=== PATIENT | female | born 1995 | race Caucasian/White ===

== ENCOUNTER 2020-08-23 13:11 | Outpatient (REF) | payer BC, SELFPAY | END 2020-08-23 13:12 | disposition home or self-care (01) | LOC: HO.LAB 13:11 | PROVIDERS: PCP Family Medicine; Referring Provider Family Medicine; Visit Provider Advanced Practice Midwife | DX: Z13.89 Encounter for screening for other disorder (principal) ==

== ENCOUNTER 2020-08-30 08:05 | Outpatient (REF) | payer BC, SELFPAY ==
[2020-08-30 09:35] LABS: Hematocrit 39.9 % (37-47); Mean Corpuscular HGB Conc 32.6 g/dl (31.0-35.0); Mean Corpuscular Hemoglobin 30.6 pg (27.0-33.0); Mean Corpuscular Volume 93.9 fL (80-98); Mean Platelet Volume 10.3 fL (9.4-12.3); Platelet Count 225 X10*3/uL (160-400); Red Blood Count 4.25 X10*6/uL (4.20-5.50); Red Cell Distribution Width 12.2 % (11.0-16.0); White Blood Count 3.2 X10*3/uL (4.8-10.8)
[2020-08-30 10:31] LABS: Thyroid Stimulating Hormone 2.28 mIU/mL (0.32-4.0)
== END 2020-08-30 08:06 | disposition home or self-care (01) ==
LOC: HO.LAB 08:05
PROVIDERS: PCP Family Medicine; Visit Provider Advanced Practice Midwife
DX: N89.8 Other specified noninflammatory disorders of vagina (principal); N94.6 Dysmenorrhea, unspecified
CPT/HCPCS: 36415; 84443; 85027

== ENCOUNTER 2022-06-26 10:39 | Outpatient (REF) | payer BC, SELFPAY ==
[2022-06-29 21:16] LABS: HPV mRNA E6/E7 rflx Not Detected (Not Detected)
== END 2022-06-26 10:40 | disposition home or self-care (01) ==
LOC: HO.LAB 10:39
PROVIDERS: Visit Provider Advanced Practice Midwife
DX: Z01.419 Encounter for gynecological examination (general) (routine) without abnormal findings (principal); Z11.51 Encounter for screening for human papillomavirus (HPV)
CPT/HCPCS: 87624; 88142

== ENCOUNTER 2024-12-22 14:36 | Outpatient (AMB) | payer BC, SELFPAY ==
[2024-12-22 14:40] VITALS: BP 118/70; BMI 33.2
--- NOTE | 2024-12-22 14:40 | A.OFFVIS_ITS ---
Vital Signs 12/22/24 14:40 Height 5 ft 9 in Weight 225 lb BMI 33.2 BP 118/70 Intake Visit Reasons: aNNUAL Application Support Required: No Application Support Services: Application Support Present Information Interpreted: clinical only Director Social Welfare: Director Social Welfare Present Allergies amoxicillin Allergy (Unknown, Uncoded 12/22/24 14:42) Unknown wasp Allergy (Unknown, Uncoded 12/22/24 14:42) unkn Medication List - Last Reconciled 12/22/24 by Yaerlis Treadwell CNM multivitamin (Daily Multi-Vitamin tablet) 1 tab PO DAILY Is last menstrual period known: Yes Last menstrual period: 12/18/24 HPI HPI aNNUAL: Details: Patient is here for an annual exam visit. She says she had an abnormal Pap smear 10 years ago and the follow-up Pap smear was okay but she is concerned because she felt a bump on her cervix and she wants that checked she was wondering if it was a laceration from childbirth. She feels a bump on the left side. She is aware of symptoms of ovulation and uses fertility awareness as her method of control. She is exclusively nursing but after both children she resumed having menses about 7 weeks . Her baby is with her and is 5-month-old is very talkative and she has a 3-year-old who is with his grandmother. She says the infection that she had in her small intestines that was diagnosed with breast test few years ago was treated instead of antibiotics a special TPN type liquid diet for 2weeks that deprived the bacteria of nourishment and cured it. She had a home with this last delivery and says everything went very well and she had a 3-1/2 hour labor. [facility] Surgical History Hx of wisdom tooth extraction Family History Mother Diabetes mellitus HTN (hypertension) Maternal Grandmother Breast cancer Paternal Grandmother Lung cancer Breast cancer Social History Alcohol intake: current Alcohol intake frequency: a few times a month Gender identity: Female Female Reproductive History Menstrual Age of Menarche: 10 Date of last menstrual period: 12/18/24 control method: none Total pregnancies: 2 Full term: 2 Date of last pap smear: 06/28/22 (neg,) History of abnormal pap smear: Yes (10 yrs ago) Physical Exam Vital Signs: BMI result Body Mass Index 33.2 Const General: healthy appearing, comfortable, no acute distress, well developed and alert Nutritional Appearance: average body habitus Orientation/consciousness: patient oriented x3 Limitations: no limitations HEENT Head: Yes normocephalic Neck Neck: Yes normal visual inspection Chest Other: Mother is lactating, last nursed 5 month old baby about 1 hour ago, breasts slightly full, nipples well everted, healthy, no masses redness or other signs of mastitis or plugged milk ducts. Chest palpation & inspection: normal inspection of the chest Breast/axilla inspection: normal inspection of the breasts and normal inspection of the axillae Breast/axilla palpation: normal palpation of the breasts and normal palpation of the axillae Resp Effort & Inspection: normal respiratory effort GI Inspection: Yes normal to inspection, No Abdominal wall edema and No distended Palpation (GI): Soft to palpation and nontender Other: Normal external exam vagina deep pink consistent with nursing moist normal appearing mucus. Cervix is multiparous evidence of horizontal laceration consistent with normal childbirth, extremely well healed. Small nabothian cyst at 04:00 o'clock cervix long close thick mobile nontender uterus midposition mobile nontender adnexa nontender nonenlarged and very good tone w Kegel. General: Yes bladder normal to palpation External Female Exam: normal external appearance and normal appearance of the urethra Speculum Exam - Vagina: normal appearance of the vagina, normal palpation and normal vaginal discharge Speculum Exam - Cervix: normal appearance of the cervix, normal palpation and nontender Bimanual exam- vagina & uterus: normal bimanual exam, normal palpation, uterine size normal, bladder normal to palpation, consistency normal, normal palpation, uterine mobility normal, uterine shape normal, No Cervical tenderness present, non-tender and no cervical motion tenderness Bimanual Exam- Adnexa, other: normal adnexae, no masses, normal and No adnexal tenderness Neuro General: patient oriented x3 Results Reviewed Results Reviewed: tray: Melony Rogers Age/Sex: 27/F Attending: Yarelis Treadwell CNM : 1995 Submitted by: Yarelis Treadwell [facility] Copies to: MR #: [id number] Status: DEP REF Collected: 06/26/22 Location: .LAB Received: 06/28/22 Interpretation Satisfactory for evaluation. Coccobacilli consistent with shift in vaginal mabel. Negative for intraepithelial lesion or malignancy. HPV mRNA E6/E7: NOT DETECTED This assay detects E6/E7 viral messenger RNA (mRNA) from 14 high-risk HPV types (16, 18, 31, 33, 35, 39, 45, 51, 52, 56, 58, 59, 66, 68) HPV testing performed by [facility], [place], [place]. See reference la urmila pion of the EMR for entire report. Clinical Information LMP: 06/11/22 Previous PAP test: No pap hx Material Received ThinPrep-Cervical Electronically Signed By: ANNE MARIE Zamora (ASCP) 07/11/22 1315 The Pap Test is a screening procedure with the inherent possibility of both false negative and false positive results. Results should be interpreted in the context of historic and current clinical findings. Reliability of the Pap Test is enhanced by performing the test on a regular repetitive basis. Patient: Melony Rogers Age/Sex: 27/F MR#: [id number] Page 1 of 1 Assessment & Plan Assessment & Plan (1) Well woman exam with routine gynecological exam: Comment: 06/26/22-Patient stated she only wanted her Pap smear today and she did not want to talk about other issues. She declined breast exam and pelvic exam other than the speculum exam for the Pap smear. 12/22/24 visit-normal visit and exam see notes. Code(s): Z01.419 - Encounter for gynecological examination (general) (routine) without abnormal findings Category: Medical (2) Cervical cancer screening: Comment: No history of abnormals. Pap smear only done 06/26/2022 if normal, next Pap in 3 years. 06/26/2022 Pap is negative with negative HPV..//(12/22/2024 patient says today that she did have a history of abnormals 10 years ago. Pap smear done with HPV co testing 01/19/25. Code(s): Z12.4 - Encounter for screening for malignant neoplasm of cervix Category: Medical (3) Family planning: Comment: Using fertility awareness Code(s): Z30.09 - Encounter for other general counseling and advice on contraception Category: Social Hx Plan -----Discussed in this visit the following: healthy balanced diet, regular and consistent exercise, getting recommended health screens, doing the best she can for her particular health concerns, kegel exercises, pap smear screening and followup recommendations, mammography screening and SBE, normal changes in cycles in her life stage--- . She is very well aware cyclic changes and follows signs and symptoms of fertility and ovulation for family planning. When they are done with childbearing she is planning on partner/ vasectomy. She is nursing with no difficulty. She is feeling fine since bacteria in her small intestine was dealt with She had a very good home experience with her last baby She was concerned about a bump that she felt on her cervix which was a small nabothian cyst. Cervix is otherwise multiparous smooth pink consistent with lactating mother. I showed her her cervix and the nabothian cyst. Completely normal multiparous cervix. Discussed the while we say come back yearly for exams if she has no need she can make decisions about that so long as she has seen somebody for care which she was primary care provider Pap smear done today if this 1 is negative with negative HPV she may not need another Pap smear for 5 years she is getting her healthcare needs met with other providers. Timeframe/Date Comment RTC for annual or p.r.n Orders: Orders Pap Smear Today Z00.00 - Encounter for general adult medical examination without abnormal findings Coding Level of Care Code Est Pt Prev Care 18-39y([id number]) Diagnoses Well woman exam with routine gynecological exam Z01.419 Cervical cancer screening Z12.4 Family planning Z30.09
--- OUTSIDE RECORDS SUMMARY | 2024-12-22 18:19 | XMS_ITS | Patient Health Record ---
Author Organization [facility], [facility] Address [address] [place] [address] [phone] Support Name Relationship Address Phone MELONY TEJEDA Guarantor Unknown Unavailable REASON FOR REFERRAL No Information PLAN OF TREATMENT No Information Insurance Providers Payer Name Payer Address Payer Phone Subscriber Number Group Number Insured Name Patient Relationship to Insured Coverage Start Date Coverage End Date [place] [id number] [place], [place] [id number] MELONY TEJEDA Self - patient is the insured
== END 2024-12-22 15:26 | disposition home or self-care (01) ==
PROVIDERS: PCP Family Medicine; Visit Provider Advanced Practice Midwife
DX: Z01.419 Encounter for gynecological examination (general) (routine) without abnormal findings (principal)
CPT/HCPCS: 99395; 99459

== ENCOUNTER 2024-12-22 14:36 | Outpatient (REF) | payer BC, SELFPAY ==
[2024-12-29 11:14] LABS: HPV Genotype 16 Negative (Negative); HPV Genotype 18 Negative (Negative); HPV High Risk Negative (Negative)
== END 2024-12-22 14:37 | disposition home or self-care (01) ==
LOC: HO.LNP 14:36
PROVIDERS: PCP Family Medicine; Visit Provider Advanced Practice Midwife
DX: Z00.00 Encounter for general adult medical examination without abnormal findings (principal); Z12.4 Encounter for screening for malignant neoplasm of cervix; Z11.51 Encounter for screening for human papillomavirus (HPV)
CPT/HCPCS: 87626; 88175